=== PATIENT | female | born 1975 | race Caucasian/White ===

== ENCOUNTER 2020-04-23 16:34 | Emergency (ER) | payer MEDICAID, SELFPAY ==
[~2020-04-23] VITALS: Ht 157.5 cm; Wt 83.9 kg
[2020-04-23 16:37] VITALS: Ht 157.5 cm; Wt 83.9 kg
[2020-04-23 17:43] VITALS: BP 122/80
== END 2020-04-23 19:43 | disposition home or self-care (01) ==
LOC: ED 16:34
DX: N39.0 Urinary tract infection, site not specified (principal); Z20.828 Contact with and (suspected) exposure to other viral communicable diseases
CPT/HCPCS: U0003